=== PATIENT | female | born 1995 | race Two or more races ===

== ENCOUNTER 2017-02-19 10:17 | Emergency (ER) | payer MEDICAID ==
[2017-02-19] MEDS ORDERED: LORAZEPAM 0.5 MG TABLET PO ONE (13:57)
[2017-02-19] MEDS: LORAZEPAM 0.5 MG TABLET PO ONE (14:02)
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
== END 2017-02-19 15:12 | disposition home or self-care (01) ==
LOC: ER 10:17
DX: S01.511A Laceration without foreign body of lip, initial encounter (principal); W05.0XXA Fall from non-moving wheelchair, initial encounter
CPT/HCPCS: 99283